=== PATIENT | male | born 1970 | race Caucasian/White ===

== ENCOUNTER 2017-10-04 12:37 | Emergency (ER) | payer MEDICAID ==
--- NOTE | 2017-10-04 13:59 | ED Physician Documentation ---
History of Present Illness - Stated complaint Stated Complaint: SIDE PAIN - Chief complaint Chief Complaint: General - History obtained from History obtained from: Patient - History of Present Illness Timing: How many days ago (3 or 4) - Additonal information Additional information: The patient is a 47-year-old male who presents with lower abdominal and bilateral flank pain that started 3 or 4 days ago and has persisted since that time. He describes having dark colored urine and decreased urine output. He denies dysuria, fever, nausea or vomiting. He denies history of similar symptoms in the past. He denies any recent traumatic injury, or any activity that is different from usual. Review of Systems Constitutional: reports: Sweats. denies: Fever Nose: denies: Congestion Throat: denies: Sore throat Cardiac: denies: Chest pain / pressure Respiratory: denies: Dyspnea, Cough GI: reports: Abdominal Pain (mild lower abdominal pain). denies: Nausea, Vomiting : denies: Dysuria Skin: denies: Rash Musculoskeletal: reports: Back pain (mild bilateral flank pain) Neurologic: denies: Focal weakness, Numbness, Headache PD PAST MEDICAL HISTORY - Past Medical History Past Medical History: Yes Cardiovascular: None Respiratory: None Neuro: None Endocrine/Autoimmune: None GI: None - Past Surgical History Past Surgical History: Yes HEENT: Tonsil/Adenoidectomy - Present Medications Home Medications: Ambulatory Orders Medication Instructions Recorded Confirmed No Known Home Medications [No 10/04/17 10/04/17 Known Home Medications] - Allergies Allergies/Adverse Reactions: Allergies Allergy/AdvReac Type Severity Reaction Status Date / Time aspirin Allergy Hives Verified 10/04/17 12:55 - Social History Does the pt smoke?: Yes Smoking Status: Current every day smoker Does the pt drink ETOH?: No Does the pt have substance abuse?: No - Immunizations Immunizations are current?: Yes PD ED PE NORMAL - Vitals Vital signs reviewed: Yes (normal) - General General: Alert and oriented X 3, Well developed/nourished - HEENT HEENT: Atraumatic, Pharynx benign - Neck Neck: No adenopathy, No JVD - Cardiac Cardiac: RRR, No murmur - Respiratory Respiratory: No respiratory distress, Clear bilaterally - Abdomen Abdomen: Normal bowel sounds, Soft, Non tender - Back Back: No spinal TTP, Other (Mild CVA tenderness to percussion bilaterally.) - Derm Derm: No rash - Extremities Extremities: No edema, No calf tenderness / cord - Neuro Neuro: Alert and oriented X 3, No motor deficit, No sensory deficit Results - Vitals Vitals: Vital Signs - 24 hr 10/04/17 10/04/17 10/04/17 12:53 16:35 17:26 Temperature 37.0 C 37.3 C Heart Rate 67 61 56 L Respiratory 16 16 17 Rate Blood Pressure 119/75 128/106 H 139/78 H O2 Saturation 99 99 100 10/04/17 10/04/17 17:40 18:32 Temperature Heart Rate 48 L 60 Respiratory 17 18 Rate Blood Pressure 116/73 123/75 O2 Saturation 98 100 Oxygen O2 Source Room air - Labs Labs: Laboratory Tests 10/04/17 10/04/17 10/04/17 13:53 14:02 14:02 WBC 11.8 H RBC 4.27 L Hgb 13.1 L Hct 38.0 L MCV 89.0 MCH 30.7 MCHC 34.5 RDW 12.9 Plt Count 244 MPV 6.3 L Neut # 8.1 H Lymph # 2.0 Rains # 1.5 H Eos # 0.1 Baso # 0.1 Absolute Nucleated RBC 0.00 Nucleated RBC % 0.0 Sodium 135 Potassium 3.6 Chloride 100 L Carbon Dioxide 27 Anion Gap 8.0 BUN 9 Creatinine 0.6 Estimated GFR (MDRD) 145 Glucose 105 H Calcium 8.6 Total Bilirubin 0.9 AST 14 ALT 11 Alkaline Phosphatase 44 Total Protein 7.4 Albumin 3.8 Globulin 3.6 Albumin/Globulin Ratio 1.1 Lipase 16 L Urine Color YELLOW Urine Clarity CLEAR Urine pH 6.5 Ur Specific [place] 1.020 Urine Protein TRACE Urine Glucose (UA) NEGATIVE Urine Ketones NEGATIVE Urine Occult Blood NEGATIVE Urine Nitrite NEGATIVE Urine Bilirubin NEGATIVE Urine Urobilinogen 1 (NORMAL) Ur Leukocyte Esterase NEGATIVE Ur Microscopic Review NOT INDICATED Urine Culture Comments NOT INDICATED - Rads (name of study) CT abd/pelvis w/IV contrast Radiology: Prelim report reviewed, EMP read contemporaneously, See rad report ( Distal abdominal aortic dissection with the intimal flap beginning on axial image 42, extending down into the bilateral common iliac arteries. The flap appears to end at the right common iliac artery. The flap continues into the left external iliac artery and ends at the proximal aspect. There is contrast in the false lumen in the distal aorta, and the majority of the contrast is in the false lumens within the bilateral common iliac arteries. Distal abdominal aortic aneurysm at the dissection measuring 3 cm. Ectatic right common iliac artery measuring 1.8 cm. Ectatic left common iliac artery measuring 1.6 cm. Left external iliac artery is ectatic, measuring 1.[address] chest aorta Radiology: Prelim report reviewed, EMP read contemporaneously, See rad report ( Negative. Normal thoracic aorta.) PD MEDICAL DECISION MAKING - ED course Complexity details: reviewed results, re-evaluated patient, considered differential, d/w patient, d/w sql server consultant ED course: The patient's presentation is significant for a descending aortic dissection, from the inferior mesenteric artery distally into the bifurcation and the common iliac arteries. There is no neurologic deficit or evidence of end organ damage or ischemia. CT scan of the chest reveals no evidence of thoracic aortic involvement. Treatment in the emergency department included administration of labetalol 20 mg IV. His pulse was subsequently 52, with a blood pressure of 115/78. I discussed his condition with Dr. Myles, vascular surgeon at [facility]. He will see the patient in consult, but advised that the patient be admitted by the medical service. I discussed his condition with , who accepts the patient for transfer. He will be transferred by ALS ambulance. Transfer forms were completed. Imaging studies were sent to [facility] by teleradiology. Departure - Departure Disposition: 02 Transfer Acute Care Hosp Clinical Impression: Aortic dissection, abdominal Condition: Serious Discharge Date/Time: 10/04/17 18:35
[2017-10-04 14:05] LABS: BASOPHILS # (AUTO) 0.1 10^3/uL (0.0-0.1); BASOPHILS % (AUTO) 0.6 %; EOSINOPHILS # (AUTO) 0.1 10^3/uL (0.0-0.7); EOSINOPHILS % (AUTO) 0.6 %; HGB - HEMOGLOBIN 13.1 g/dL (14.0-18.0); LYMPHOCYTES % (AUTO) 16.8 %; MEAN CORPUSCULAR HEMOGLOBIN 30.7 pg (27.0-31.0); MEAN CORPUSCULAR HGB CONC 34.5 g/dL (32.0-36.0); MEAN PLATELET VOLUME 6.3 fL (7.4-11.4); MONOCYTES # (AUTO) 1.5 10^3/uL (0.0-1.0); NEUTROPHILS # (AUTO) 8.1 10^3/uL (1.5-6.6); PLT - PLATELET COUNT 244 10^3/uL (130-450); RED BLOOD COUNT 4.27 10^6/uL (4.70-6.10); RED CELL DISTRIBUTION WIDTH 12.9 % (12.0-15.0); WHITE BLOOD COUNT 11.8 x10^3/uL (4.8-10.8)
[2017-10-04 14:08] LABS: BILIRUBIN,URINE NEGATIVE (NEGATIVE); GLUCOSE, URINE (UA) NEGATIVE (NEGATIVE); KETONES,URINE (UA) NEGATIVE (NEGATIVE); LEUKOCYTE ESTERASE, URINE NEGATIVE (NEGATIVE); NITRITE,URINE NEGATIVE (NEGATIVE); OCCULT BLOOD,URINE NEGATIVE (NEGATIVE); PH,URINE 6.5 PH (5.0-7.5); PROTEIN,URINE TRACE mg/dL (NEGATIVE); UROBILINOGEN,URINE 1 (NORMAL) E.U./dL (NORMAL)
[2017-10-04 14:09] LABS: CLARITY,URINE CLEAR (CLEAR)
[2017-10-04 14:17] LABS: ALBUMIN 3.8 g/dL (3.2-5.5); ALBUMIN/GLOBULIN RATIO 1.1 (1.0-2.2); BILIRUBIN,TOTAL 0.9 mg/dL (0.2-1.0); CALCIUM 8.6 mg/dL (8.5-10.3); CREATININE 0.6 mg/dL (0.6-1.2); TOTAL PROTEIN 7.4 g/dL (6.7-8.2)
[2017-10-04] MEDS ORDERED: IOPAMIDOL-300 100 ML VIAL ONE ×2 (14:57→17:16)
[2017-10-04] MEDS ORDERED: IOPAMIDOL-300 100 ML VIAL IVP ONE ×2 (16:05→17:10)
--- NOTE | 2017-10-04 16:53 | CT Report ---
EXAM: CT ABDOMEN AND PELVIS EXAM DATE: 10/04/2017 04:13 PM. CLINICAL HISTORY: Lower abdominal pain. COMPARISONS: None. TECHNIQUE: Routine helical CT imaging was performed through the abdomen and pelvis. IV contrast: CE. Enteric contrast: No. Reconstructions: Coronal and sagittal. In accordance with CT protocol optimization, one or more of the following dose reduction techniques w ere utilized for this exam: automated exposure control, adjustment of mA and/or KV based on patient s ize, or use of iterative reconstructive technique. FINDINGS: Lung Bases: Unremarkable. Liver: Within normal limits. Normal variant focal fat adjacent to the falciform ligament. Gallbladder/Bile Ducts: Unremarkable. Spleen: Normal. Pancreas: Normal. Adrenal Glands: Normal. Kidneys: Normal. No masses or hydronephrosis. Peritoneal Cavity/Bowel: Normal. No free fluid, free air or adenopathy. No masses or acute inflammato ry process. The appendix is well visualized and normal. Pelvic Organs: Normal. The bladder and visualized pelvic organs are within normal limits. Vasculature: Distal abdominal aortic dissection with the intimal flap beginning on axial image 42 ex tending down into the bilateral common iliac arteries . The flap appears to end at the right common i liac artery. The flap continues into the left external iliac artery and ends at the proximal aspect. There is contrast in the false lumen in the distal aorta, and the majority of the contrast is in the false lumens within the bilateral common iliac arteries. Distal abdominal aortic aneurysm at the diss ection measuring 3 cm. Ectatic right common iliac artery measuring 1.8 cm. Ectatic left common iliac artery measuring 1.6 cm. Left external iliac artery is ectatic measuring 1.2 cm. The left internal il iac artery is being spine by the true lumen. There is circumferential intramural hematoma extending s uperiorly from where the intimal flap is seen, and could represent retrograde hematoma. This intramur al hematoma extends up to the level of the inferior mesenteric artery, surrounding the base of the in ferior mesenteric artery. The inferior mesenteric artery appears patent. The celiac and superior mesenteric arteries appear patent. Bilateral renal arteries appear patent. Bones: No acute bone findings. IMPRESSION: 1. Distal abdominal aortic dissection with the intimal flap beginning on axial image 42 extending jay n into the bilateral common iliac arteries . The flap appears to end at the right common iliac artery . The flap continues into the left external iliac artery and ends at the proximal aspect. There is co ntrast in the false lumen in the distal aorta, and the majority of the contrast is in the false lumen s within the bilateral common iliac arteries. Distal abdominal aortic aneurysm at the dissection ramon uring 3 cm. Ectatic right common iliac artery measuring 1.8 cm. Ectatic left common iliac artery ramon uring 1.6 cm. Left external iliac artery is ectatic measuring 1.2 cm. The left internal iliac artery is being spine by the true lumen. There is circumferential intramural hematoma extending superiorly f rom where the intimal flap is seen, and could represent retrograde hematoma. This intramural hematoma extends up to the level of the inferior mesenteric artery, surrounding the base of the inferior mese nteric artery. The inferior mesenteric artery appears patent. [facility] The above findings were discussed with Ga Thibodeaux by Dr. Lindsey Souza at 16:35 hrs on 10/04/17 . Referring Provider Line: [phone] SITE ID: [id number]
[2017-10-04] MEDS ORDERED: LABETALOL 20 MG/4 ML SYRINGE IVP ONE (16:58)
--- NOTE | 2017-10-04 17:43 | CT Report ---
EXAM: CT ANGIOGRAM CHEST EXAM DATE: 10/04/2017 05:20 PM. CLINICAL HISTORY: Symptoms of mid abdominal pain. COMPARISONS: None. TECHNIQUE: Routine axial helical CT angiographic imaging was performed through the chest, abdomen, and pelvis. I V Contrast: 100 cc Isovue-300 IV. Reconstructions: Coronal, sagittal, and 3D MIP reconstructions of t he aorta. In accordance with CT protocol optimization, one or more of the following dose reduction techniques w ere utilized for this exam: automated exposure control, adjustment of mA and/or KV based on patient s ize, or use of iterative reconstructive technique. FINDINGS: Vascular Structures: Thoracic aorta appears normal. No aneurysm or dissection. No central pulmonary e mbolism. Lungs/Pleura: No consolidation, nodules, or edema. No effusions or pneumothorax. Mediastinum: Heart size is normal. No pericardial effusion. No mediastinal or hilar lymphadenopathy. Other: No fracture is demonstrated. No destructive bone lesion. There is satisfactory alignment of th e spine. IMPRESSION: 1. Negative. Normal thoracic aorta. No pulmonary embolism. Clear lungs. [facility] Referring Provider Line: [phone] SITE ID: [id number]
[2017-10-04] MEDS ORDERED: LABETALOL 5 MG/1 ML 20 ML MDV IVP ONE (18:00)
[2017-10-04 18:35] VITALS: BP 123/75
== END 2017-10-04 18:35 | disposition short-term general hospital (02) ==
LOC: ED 12:37
DX: I71.02 Dissection of abdominal aorta (principal); F17.200 Nicotine dependence, unspecified, uncomplicated
CPT/HCPCS: 36415; 71275; 74177; 80053; 81003; 83690; 85025; 96374; 99284; 99285; Q9967; 81001; 87086

== ENCOUNTER 2017-10-04 18:36 | Outpatient (CLI) | payer MEDICAID | END 2017-10-04 18:37 | disposition short-term general hospital (02) | LOC: EMS 18:36 | PROVIDERS: ATTEND Surgery | DX: I71.00 Dissection of unspecified site of aorta (principal) | CPT/HCPCS: A0425; A0426 ==

== ENCOUNTER 2021-01-20 23:04 | Emergency (ER) | payer MEDICAID ==
[2021-01-20 23:12] VITALS: BP 140/90
[2021-01-20] MEDS ORDERED: BUFFERED LIDOCAINE 10 ML SYRINGE SUBQ STA (23:19)
[2021-01-20] MEDS ORDERED: LORazepam 1 MG TABLET PO STA (23:19)
[2021-01-20] MEDS ORDERED: BACITRACIN ZINC OINT 1 PACKET TOP STA (23:20)
--- NOTE | 2021-01-20 23:35 | ED Physician Documentation ---
History of Present Illness - Stated complaint Stated Complaint: LT FINGER LAC/INJ - Chief complaint Chief Complaint: Laceration - History obtained from History obtained from: Patient - Additonal information Additional information: 50-year-old man presents with left second finger laceration after working on a bolt on his car tonight. Tetanus up-to-date. Immediately after the injury happened he applied duct tape to the finger and came to the emergency room. Review of Systems Skin: reports: Laceration (s) PD PAST MEDICAL HISTORY - Past Medical History Cardiovascular: None Respiratory: None Neuro: None Endocrine/Autoimmune: None GI: None - Past Surgical History Past Surgical History: Yes HEENT: Tonsil/Adenoidectomy - Present Medications Home Medications: Ambulatory Orders Medication Instructions Recorded Confirmed No Known Home Medications 10/04/17 01/20/21 - Allergies Allergies/Adverse Reactions: Allergies Allergy/AdvReac Type Severity Reaction Status Date / Time aspirin Allergy Hives Verified 01/20/21 23:12 - Social History Does the pt smoke?: Yes Smoking Status: Current every day smoker Does the pt drink ETOH?: No Does the pt have substance abuse?: No - Immunizations Immunizations are current?: Yes PD ED PE NORMAL - Vitals Vital signs reviewed: Yes - General General: Alert and oriented X 3, No acute distress, Well developed/nourished - HEENT HEENT: Atraumatic, PERRL, EOMI - Derm Derm: Normal color, Warm and dry, Other (1cm curved well approximated superficial lac to L 2nd finger) Results - Vitals Vitals: Vital Signs - 24 hr 01/20/21 23:08 Temperature 36.9 C Heart Rate 88 Respiratory 18 Rate Blood Pressure 140/90 H O2 Saturation 95 Oxygen O2 Source Room air Procedures - Laceration (location) Finger left Length in cm: 1 Wound type: Curved, Flap, Superficial, Clean Neurovascular status: Sensory intact, Motor intact Wound preparation: Irrigated copiously NS, Wound explored, To the base, Other (no foreign body) Skin layer closure: Dermabond Other: Patient tolerated well, No complications, Neurovascular intact, Dressing applied, Tetanus UTD PD MEDICAL DECISION MAKING - ED course ED course: 50-year-old man presented with superficial laceration to finger, repaired with Dermabond. Return precautions given. Patient will follow up for wound check with his primary doctor as needed. Departure - Departure Disposition: 01 Home, Self Care Clinical Impression: Laceration of finger Condition: Good Instructions: ED Laceration All Comments: You are seen in the emergency department for a cut on your finger. We cleaned it with sterile water and put Dermabond, adhesive skin glue on it. This will fall off on its own like a scab. You should keep the dressing dry for 24 to 48 hours and return to the emergency department immediately if you detect any signs of infection as we discussed. Discharge Date/Time: 01/21/21 00:32
== END 2021-01-21 00:32 | disposition home or self-care (01) ==
LOC: ED 23:04
DX: S61.211A Laceration without foreign body of left index finger without damage to nail, initial encounter (principal); W26.8XXA Contact with other sharp object(s), not elsewhere classified, initial encounter; Y93.89 Activity, other specified; Y92.810 Car as the place of occurrence of the external cause; F17.200 Nicotine dependence, unspecified, uncomplicated
CPT/HCPCS: 12001; 99281; 99282; A9270; J8499

== ENCOUNTER 2021-06-07 02:56 | Emergency (ER) | payer MEDICAID ==
--- NOTE | 2021-06-07 04:27 | ED Physician Documentation ---
History of Present Illness - Stated complaint Stated Complaint: BODY PX,FATIGUE,SOA - Chief complaint Chief Complaint: General - History obtained from History obtained from: Patient - Additonal information Additional information: 51yM, unvaccinated against covid 19, daily smoker with pmd aortic dissection but no other known medical problems p/w covid-19 symtpoms X 5 days with positive at home test. patient endorsing sore throat, subjective soa, nonproductive cough, and severe body aches. denies cp, n/v/d, leg swelling hemoptysis. Review of Systems Ten Systems: 10 systems reviewed and negative Constitutional: reports: Fever, Chills, Myalgias, Fatigue Respiratory: reports: Dyspnea, Cough GI: denies: Abdominal Pain, Nausea, Vomiting, Diarrhea : denies: Dysuria PD PAST MEDICAL HISTORY - Past Medical History Past Medical History: No Cardiovascular: None Respiratory: None Neuro: None Endocrine/Autoimmune: None GI: None : None HEENT: None Psych: None Musculoskeletal: None Derm: None - Past Surgical History Past Surgical History: Yes HEENT: Tonsil/Adenoidectomy - Present Medications Home Medications: Ambulatory Orders Medication Instructions Recorded Confirmed No Known Home Medications 10/04/17 06/07/21 - Allergies Allergies/Adverse Reactions: Allergies Allergy/AdvReac Type Severity Reaction Status Date / Time aspirin Allergy Hives Verified 06/07/21 03:32 - Social History Does the pt smoke?: Yes Smoking Status: Current every day smoker Does the pt drink ETOH?: No Does the pt have substance abuse?: No - Immunizations Immunizations are current?: Yes - POLST Patient has POLST: No PD ED PE NORMAL - Vitals Vital signs reviewed: Yes - General General: Alert and oriented X 3, No acute distress, Well developed/nourished - HEENT HEENT: Atraumatic, PERRL, EOMI, Moist mucous membranes, Pharynx benign - Neck Neck: Supple, no meningeal sign - Cardiac Cardiac: RRR - Respiratory Respiratory: No respiratory distress, Clear bilaterally - Abdomen Abdomen: Non tender, Non distended - Derm Derm: Normal color, Warm and dry - Extremities Extremities: No deformity, No edema - Neuro Neuro: Alert and oriented X 3, No motor deficit, No sensory deficit - Psych Psych: Normal mood, Normal affect Results - Vitals Vitals: Vital Signs - 24 hr 06/07/21 03:28 Temperature 36.8 C Heart Rate 90 Respiratory 16 Rate Blood Pressure 126/86 H O2 Saturation 98 Oxygen O2 Source Room air PD MEDICAL DECISION MAKING - ED course ED course: 51yMp/w covid 19 symptoms with normal vital signs and exam. symptoms care discussed. plan to f/u with pmd. return precautions given. Departure - Departure Disposition: Home, Self Care Clinical Impression: COVID-19 Condition: Stable Instructions: COVID-19 [facility], COVID-19 [facility] Department Statement Comments: You were seen in the ED for evaluation of your covid 19 infection. Your vital signs and exam showed no emergent findings. Please stay well hydrated, stay home and quarantine until your symptoms resolve per CDC guidelines. Return to the ED if you have new or worsening symptoms or other concerns.
[2021-06-07 04:49] VITALS: BP 121/79
== END 2021-06-07 04:51 | disposition home or self-care (01) ==
LOC: ED 02:56
DX: U07.1 COVID-19 (principal); R05.9 Cough, unspecified; R06.02 Shortness of breath; F17.200 Nicotine dependence, unspecified, uncomplicated
CPT/HCPCS: 99281; 99283

== ENCOUNTER 2021-06-08 14:22 | Emergency (ER) | payer MEDICAID ==
[2021-06-08] MEDS ORDERED: KETOROLAC 30 MG/ML VIAL IVP STA (17:26)
[2021-06-08] MEDS ORDERED: SODIUM CHLORIDE 0.9% 1,000 ML IV STA (17:26)
[2021-06-08 18:05] LABS: BASOPHILS % (AUTO) 0.3 %; HCT - HEMATOCRIT 43.5 % (42.0-52.0); HGB - HEMOGLOBIN 15.5 g/dL (14.0-18.0); LYMPHOCYTES % (AUTO) 26.9 %; MEAN CORPUSCULAR HGB CONC 35.6 g/dL (32.0-36.0); MEAN CORPUSCULAR VOLUME 89.7 fL (80.0-94.0); MEAN PLATELET VOLUME 8.4 fL (7.4-11.4); MONOCYTES % (AUTO) 14.1 %; NEUTROPHILS # (AUTO) 4.3 10^3/uL (1.5-6.6); NEUTROPHILS % (AUTO) 58.4 %; PLT - PLATELET COUNT 214 10^3/uL (130-450); RED BLOOD COUNT 4.85 10^6/uL (4.70-6.10); WHITE BLOOD COUNT 7.3 x10^3/uL (4.8-10.8)
--- NOTE | 2021-06-08 18:11 | XRAY Report ---
PROCEDURE: Chest 1 View X-Ray INDICATIONS: chest pain TECHNIQUE: One view of the chest was acquired. COMPARISON: CT angiogram of chest dated 10/04/2017. FINDINGS: Surgical changes and devices: None. Lungs and pleura: No pleural effusions or pneumothorax. Lungs are clear. Mediastinum: Mediastinal contours appear normal. Heart size is normal. Bones and chest wall: No suspicious bony lesions. Overlying soft tissues appear unremarkable. IMPRESSION: No acute cardiopulmonary pathology. Reviewed by: Jose Kan MD on 06/08/2021 6:10 PM PST Approved by: Jose Kan MD on 06/08/2021 6:10 PM PST Station ID: [id number]
[2021-06-08 18:17] LABS: ALBUMIN 3.7 g/dL (3.2-5.5); ALBUMIN/GLOBULIN RATIO 0.8 (1.0-2.2); BILIRUBIN,TOTAL 0.6 mg/dL (0.2-1.0); CALCIUM 8.8 mg/dL (8.5-10.3); CREATININE 0.7 mg/dL (0.6-1.2); POTASSIUM 3.9 mmol/L (3.5-5.0); TOTAL PROTEIN 8.1 g/dL (6.7-8.2)
--- NOTE | 2021-06-08 18:37 | ED Physician Documentation ---
History of Present Illness - Stated complaint Stated Complaint: DECLINE HEALTH DUE C+ - Chief complaint Chief Complaint: General - History obtained from History obtained from: Patient - Additonal information Additional information: Pt comes to the ED c/o sore throat, headache, myalgias, congestion, cough, and fatigue for the past week. He took a home test, which was positive for covid. Pt does not know of any sick contacts. He is unvaccinated. No shortness of breath. No fever. Pt is otherwise healthy. He states he has not been eating or drinking because he does not feel like it. No NVD. Pt states he is just tired of feeling sick. Review of Systems Ten Systems: 10 systems reviewed and negative Constitutional: reports: Myalgias, Fatigue Eyes: reports: Reviewed and negative Ears: reports: Reviewed and negative Nose: reports: Reviewed and negative Throat: reports: Sore throat Cardiac: reports: Reviewed and negative Respiratory: reports: Cough. denies: Dyspnea GI: reports: Reviewed and negative. denies: Nausea, Vomiting : reports: Reviewed and negative Skin: reports: Reviewed and negative Musculoskeletal: reports: Reviewed and negative Neurologic: reports: Headache Psychiatric: reports: Reviewed and negative Endocrine: reports: Reviewed and negative Immunocompromised: reports: Reviewed and negative PD PAST MEDICAL HISTORY - Past Medical History Cardiovascular: None Respiratory: None Neuro: None Endocrine/Autoimmune: None GI: None : None HEENT: None Psych: None Musculoskeletal: None Derm: None - Past Surgical History Past Surgical History: Yes HEENT: Tonsil/Adenoidectomy - Present Medications Home Medications: Ambulatory Orders Medication Instructions Recorded Confirmed No Known Home Medications 10/04/17 06/07/21 - Allergies Allergies/Adverse Reactions: Allergies Allergy/AdvReac Type Severity Reaction Status Date / Time aspirin Allergy Hives Verified 06/08/21 16:25 - Social History Does the pt smoke?: Yes Smoking Status: Current every day smoker Does the pt drink ETOH?: No Does the pt have substance abuse?: No - Immunizations Immunizations are current?: Yes - POLST Patient has POLST: No PD ED PE NORMAL - Vitals Vital signs reviewed: Yes - General General: Alert and oriented X 3, No acute distress, Well developed/nourished, Other (Pt is huddled under a blanket, tearful, otherwise in NAD) - HEENT HEENT: PERRL - Cardiac Cardiac: RRR, No murmur - Respiratory Respiratory: No respiratory distress, Clear bilaterally - Abdomen Abdomen: Soft, Non tender, Non distended - Back Back: No CVA TTP - Derm Derm: Normal color, Warm and dry, No rash - Extremities Extremities: No deformity, No edema - Neuro Neuro: Alert and oriented X 3, tie up worker 2-12 intact, No motor deficit, No sensory deficit, Normal speech - Psych Psych: Normal mood, Normal affect Results - Vitals Vitals: Vital Signs - 24 hr 06/08/21 06/08/21 16:22 19:22 Temperature 98.3 C H 37.5 C Heart Rate 98 88 Respiratory 16 22 Rate Blood Pressure 133/94 H 107/68 O2 Saturation 95 98 Oxygen O2 Source Room air - Labs Labs: Laboratory Tests 06/08/21 06/08/21 17:58 17:58 WBC 7.3 RBC 4.85 Hgb 15.5 Hct 43.5 MCV 89.7 MCH 32.0 H MCHC 35.6 RDW 12.0 Plt Count 214 MPV 8.4 Neut # (Auto) 4.3 Lymph # (Auto) 2.0 [place] # (Auto) 1.0 Eos # (Auto) 0.0 Baso # (Auto) 0.0 Absolute Nucleated RBC 0.00 Nucleated RBC % 0.0 Sodium 134 L Potassium 3.9 Chloride 94 L Carbon Dioxide 30 Anion Gap 10.0 BUN 14 Creatinine 0.7 Estimated GFR (MDRD) 119 Glucose 109 H Calcium 8.8 Total Bilirubin 0.6 AST 51 H ALT 37 Alkaline Phosphatase 60 Total Protein 8.1 Albumin 3.7 Globulin 4.4 H Albumin/Globulin Ratio 0.8 L Lipase 21 L - Rads (name of study) CXR Radiology: Final report received, EMP read indepedently, See rad report (No acute abnormality) PD MEDICAL DECISION MAKING - ED course Complexity details: reviewed results, re-evaluated patient, considered differential, d/w patient ED course: Pt was treated with IV fluids and worked up with labs and CXR, all of which were unremarkable. I have counseled the pt that his sx will most likely carry on for 1-3 weeks, and he will have to just wait out the misery. We have discussed symptomatic management at home, and the fact that if he worsens significantly, he should return for re-evaluation. Departure - Departure Disposition: Home, Self Care Clinical Impression: COVID-19 Condition: Stable Instructions: COVID-19 [facility] Comments: Your x-ray and labs look good. Unfortunately, COVID like every other virus must run its course, and there is no specific treatment. You will need to make yourself drink fluids, regardless of whether you feel like drinking or not. You should have a goal of drinking 8 to 10 cups of fluid per day, mainly in the form of water. You may take ibuprofen and Tylenol as needed for the discomfort. Your symptoms will most likely begin to improve in the next week. Please continue to get plenty of rest until you are feeling better. Discharge Date/Time: 06/08/21 19:46
[2021-06-08 19:24] VITALS: BP 107/68
== END 2021-06-08 19:46 | disposition home or self-care (01) ==
LOC: ED 14:22
DX: U07.1 COVID-19 (principal); F17.200 Nicotine dependence, unspecified, uncomplicated
CPT/HCPCS: 36415; 80053; 83690; 85025; 96374; 99282

== ENCOUNTER 2021-12-03 08:00 | Outpatient (CLI) | payer MEDICAID | END 2021-12-03 23:59 | disposition home or self-care (01) | LOC: LAB.S 08:00 | PROVIDERS: ATTEND Emergency Medicine | DX: L03.115 Cellulitis of right lower limb (principal) | CPT/HCPCS: 87070; 87181; 87205 ==

== ENCOUNTER 2023-02-12 08:00 | Outpatient (CLI) | payer MEDICAID ==
[2023-02-12 22:48] LABS: CHLAMYDIA TRACHOMATIS DNA NEGATIVE (NEGATIVE); NEISSERIA GONORRHOEAE DNA NEGATIVE (NEGATIVE); TRICHOMONAS VAGINALIS DNA POSITIVE (NEGATIVE)
== END 2023-02-12 23:59 | disposition home or self-care (01) ==
LOC: LAB 08:00
PROVIDERS: ATTEND Physician Assistant Medical
DX: Z20.2 Contact with and (suspected) exposure to infections with a predominantly sexual mode of transmission (principal)
CPT/HCPCS: 87491; 87591; 87661

== ENCOUNTER 2023-02-26 01:16 | Emergency (ER) | payer MEDICAID ==
[2023-02-26 01:34] VITALS: BP 140/98; O2SAT 96
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
[2023-02-26] MEDS: HYDROmorphone 1 MG/ML CARPUJECT IM STA (03:17)
[2023-02-26] MEDS: oxyCODONE/ACET 5/325 Prepack 4 PO STA (04:39)
[2023-02-26] MEDS: ONDANSETRON ODT 4 MG Prepack 2 TL PRN (04:39)
--- NOTE | 2023-02-26 08:12 | XRAY Report ---
PROCEDURE: Ribs w/PA Chest LT INDICATIONS: injury 2 days ago, worsening pain and dyspnea TECHNIQUE: 4 views of the left ribs were acquired, along with a single view chest. COMPARISON: Chest x-ray, 06/08/2021. FINDINGS: Surgical changes and devices: None. Bones and chest wall: There is a mid clavicular shaft fracture with displacement. No suspicious bon y lesions. Overlying soft tissues appear unremarkable. Lungs and pleura: No pleural effusions or pneumothorax. Lungs appear clear. Mediastinum: Mediastinal contours appear normal. Heart size is normal. IMPRESSION: 1. Mid clavicular shaft fracture with displacement. 2. No displaced rib fractures. No significant discrepancy with the preliminary interpretation. Reviewed by: Moise Baez MD on 02/26/2023 8:11 AM PDT Approved by: Moise Baez MD on 02/26/2023 8:11 AM PDT Station ID: [id number]
== END 2023-02-26 04:40 | disposition home or self-care (01) ==
LOC: ED 01:16
DX: S42.022A Displaced fracture of shaft of left clavicle, initial encounter for closed fracture (principal); V86.95XA Unspecified occupant of 3- or 4- wheeled all-terrain vehicle (ATV) injured in nontraffic accident, initial encounter; F17.200 Nicotine dependence, unspecified, uncomplicated
CPT/HCPCS: 96372; 99283; 99284

== ENCOUNTER 2023-06-10 07:03 | Emergency (ER) | payer MEDICAID ==
[2023-06-10] MEDS ORDERED: DEXAMETHASONE 10 MG/ML VIAL PO STA (07:26)
[2023-06-10] MEDS ORDERED: CHERRY SYRUP 10 ML UDC PO ONE (07:26)
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
[2023-06-10] MEDS ORDERED: HYDROcod/ACETAM 5/325 MG TABLET PO STA (10:01)
[2023-06-10 10:23] VITALS: BP 143/96; O2SAT 98
== END 2023-06-10 10:17 | disposition home or self-care (01) ==
LOC: ED 07:03
DX: S22.49XA Multiple fractures of ribs, unspecified side, initial encounter for closed fracture (principal); V49.9XXA Car occupant (driver) (passenger) injured in unspecified traffic accident, initial encounter; F17.200 Nicotine dependence, unspecified, uncomplicated
CPT/HCPCS: 71250; 99284; A9270